=== PATIENT | male | born 1995 | race Caucasian/White ===

== ENCOUNTER 2016-04-17 14:57 | Emergency (ER) | payer MEDICAID ==
[~2016-04-17 14:57] MED LIST: INTUNIV3 MG PO; MIRALAX 255 GM255 GM PO; RITALIN 20M20 MG/TAB PO; SEROQUEL 1100 MG/TAB PO; SEROQUEL 200MG200 MG PO; SEROQUEL XR300 MG PO; SEROQUEL XR50 MG PO; SINGULAIR 110 MG/TAB PO
== END 2016-04-17 17:50 | disposition home or self-care (01) ==
LOC: ED 14:57
DX: F33.9 Major depressive disorder, recurrent, unspecified (principal); F41.9 Anxiety disorder, unspecified; F17.210 Nicotine dependence, cigarettes, uncomplicated

== ENCOUNTER 2016-06-26 20:30 | Emergency (ER) | payer MEDICAID ==
[~2016-06-26] VITALS: Ht 165.1 cm; Wt 78.2 kg
[2016-06-26] MEDS ORDERED: ZOLOFT 50MG50 MG PO (21:41)
[2016-06-26 23:04] VITALS: BP 137/87
== END 2016-06-26 23:04 | disposition home or self-care (01) ==
LOC: ED 20:30
DX: R45.851 Suicidal ideations (principal); R45.850 Homicidal ideations; Z56.0 Unemployment, unspecified; Z63.79 Other stressful life events affecting family and household; F41.9 Anxiety disorder, unspecified; F32.9 Major depressive disorder, single episode, unspecified; F31.9 Bipolar disorder, unspecified

== ENCOUNTER → 2016-07-07 | Outpatient (CLI) | payer MEDICAID ==
[2016-06-26 23:04] VITALS: BP 137/87
[~2016-07-07] MED LIST changes: +ZOLOFT 50MG50 MG PO
== END ==
LOC: LAB 12:18
DX: Z20.2 Contact with and (suspected) exposure to infections with a predominantly sexual mode of transmission (principal)

== ENCOUNTER 2016-09-14 05:33 | Emergency (ER) | payer MEDICAID ==
[~2016-09-14] VITALS: Ht 167.6 cm; Wt 78.2 kg
[2016-09-14 06:55] VITALS: BP 123/74
== END 2016-09-14 06:55 | disposition home or self-care (01) ==
LOC: ED 05:33
DX: S93.601A Unspecified sprain of right foot, initial encounter (principal); W22.8XXA Striking against or struck by other objects, initial encounter; Y92.008 Other place in unspecified non-institutional (private) residence as the place of occurrence of the external cause; F90.9 Attention-deficit hyperactivity disorder, unspecified type; F41.9 Anxiety disorder, unspecified; F31.9 Bipolar disorder, unspecified

== ENCOUNTER → 2016-10-01 | Outpatient (CLI) | payer MEDICAID ==
[2016-09-14 06:55] VITALS: BP 123/74
== END ==
LOC: LAB 13:24
DX: Z79.899 Other long term (current) drug therapy (principal)

== ENCOUNTER 2017-09-30 18:01 | Emergency (ER) | payer SELFPAY ==
[~2017-09-30] VITALS: Ht 167.6 cm; Wt 82.7 kg
[2017-09-30 19:12] LABS: BASO # 0.1 (0.02-0.10); EOS # 0.3 (0.04-0.40); EOS % 2.7 % (0.0-4.0); HEMATOCRIT 45.5 % (42.0-52.0); HEMOGLOBIN 15.7 g/dL (13.5-18.0); MEAN CELL VOLUME 82 fl (78-100); MEAN CORPUSCULAR HEMOGLOBIN 28 pg (27-31); MEAN CORPUSCULAR HGB CONC 35 g/dL (33-37); MEAN PLATELET VOLUME 8.9 fl (7.4-10.4); MONO # 0.8 (0.20-0.80); PLATELET COUNT 298 K/mm3 (130-400); RED BLOOD COUNT 5.58 M/mm3 (4.20-5.60); RED CELL DISTRIBUTION WIDTH 13.9 % (11.5-14.5); WHITE BLOOD COUNT 9.2 K/mm3 (4.8-10.8)
[2017-09-30 20:21] LABS: PH-URINE 5.5 (5.0 - 8.0); URINE APPEARANCE CLEAR; URINE BILIRUBIN NEGATIVE (NEGATIVE); URINE BLOOD NEGATIVE (NEGATIVE); URINE COLOR YELLOW; URINE GLUCOSE NEGATIVE (NEGATIVE); URINE KETONE NEGATIVE (NEGATIVE); URINE LEUKOCYTE ESTERASE NEGATIVE (NEGATIVE); URINE NITRATE NEGATIVE (NEGATIVE); URINE PROTEIN(semi-quant) NEGATIVE (NEGATIVE); URINE UROBILINOGEN NORMAL (NORMAL)
[2017-09-30 20:22] LABS: URINE WBC 0-1 /hpf (0-3)
[2017-09-30] MEDS ORDERED: KETOROLAC10 MG PO (21:43)
[2017-09-30 22:00] VITALS: BP 107/71
== END 2017-09-30 22:00 | disposition home or self-care (01) ==
LOC: ED 18:01
PROVIDERS: Family Medicine
DX: R07.89 Other chest pain (principal); Z79.899 Other long term (current) drug therapy

== ENCOUNTER → 2020-09-04 | Outpatient (CLI) | payer OTHER ==
[~2020-09-04] MED LIST changes: +KETOROLAC10 MG PO; +MULTIVITAMIN1 EACH PO
== END ==
LOC: RAD 13:53
DX: M79.641 Pain in right hand (principal)

== ENCOUNTER 2020-09-16 09:32 | Emergency (ER) | payer OTHER ==
[~2020-09-16] VITALS: Ht 167.6 cm; Wt 93.2 kg
[~2020-09-16 09:32] MED LIST changes: -MULTIVITAMIN1 EACH PO
[2020-09-16] MEDS ORDERED: MULTIVITAMIN1 EACH PO (09:50)
[2020-09-16 10:38] VITALS: BP 120/71
== END 2020-09-16 10:48 | disposition home or self-care (01) ==
LOC: ED 09:32
DX: S61.011A Laceration without foreign body of right thumb without damage to nail, initial encounter (principal); F17.290 Nicotine dependence, other tobacco product, uncomplicated; Z23 Encounter for immunization; W26.8XXA Contact with other sharp object(s), not elsewhere classified, initial encounter; Y99.0 Civilian activity done for income or pay
CPT/HCPCS: 90714

== ENCOUNTER → 2021-01-19 | Outpatient (CLI) | payer OTHER ==
[~2021-01-19] MED LIST changes: +MULTIVITAMIN1 EACH PO
== END ==
LOC: LAB 19:00
DX: Z20.822 Contact with and (suspected) exposure to COVID-19 (principal)

== ENCOUNTER 2021-07-19 16:55 | Emergency (ER) | payer OTHER ==
[~2021-07-19] VITALS: Ht 167.6 cm; Wt 93.2 kg
[2021-07-19 17:20] VITALS: BP 110/66
== END 2021-07-19 17:20 | disposition home or self-care (01) ==
LOC: ED 16:55
DX: S61.211A Laceration without foreign body of left index finger without damage to nail, initial encounter (principal); W26.8XXA Contact with other sharp object(s), not elsewhere classified, initial encounter; Y92.59 Other trade areas as the place of occurrence of the external cause; Y99.0 Civilian activity done for income or pay